=== PATIENT | female | born 1985 | race Caucasian/White ===

== ENCOUNTER 2016-04-21 02:38 | Emergency (ER) | payer MEDICAID, OTHER ==
[~2016-04-21 02:38] MED LIST: ACYC400T PO; ATOM40CA PO; BENT10CA PO; BISA10SU4 PR; BUSP10TA PO; CEFD1CAP8 PO; DIPHCR EXT; DOCU100C27 PO; GABA100C PO; GABA800T PO; HYDR-3713 PO; IBUP100SUS PO; NEUR600T PO; NICO10SP; OMEP20CA3 PO; OXCA600T PO; PENI250T57 PO; POTA10TA16 PO; PRAZ1CAP PO; PRAZ2CAP PO; PRENTAB66 PO; PROZ10CA7 PO; REGL10TA6 PO; RITA20TA PO; SERT-141 PO; TRAZ50TA4 PO; Trazadone PO; WELBUTRIN PO; WELL100T2 PO; ZOFR4TAB3 PO; [UNRECOGNIZED DRUG - CODE] PO; [UNRECOGNIZED DRUG - OTHER] PO
[2016-04-21] MEDS ORDERED: DICYCLOMINE INJ 20MG/2ML (J0500) As Ordered ONE (03:48)
[2016-04-21] MEDS ORDERED: ONDANSETRON 4 MG ORAL DISINTEGRATING TAB (S0181) As Ordered ONE (03:48)
[2016-04-21] MEDS ORDERED: MAGNESIUM CITRATE 300 ML BTL As Ordered ONE (05:12)
--- NOTE | 2016-04-21 05:21 | EDDOCDS ---
Nurse's Notes [facility] Name: Sera Gordon Age: 30 yrs Sex: Female : 1985 Arrival Date: 04/21/2016 Time: 02:38 Bed 15 Private MD: Diagnosis: Constipation Presentation: 04/21 02:40 Presenting complaint: EMS states: per EMS pt complains of abdominal pain, no BM for the tm5 past 2 days now, VSS. Risk factors: the patient reports no vaginal bleeding. Adult Sepsis Screening: The patient does not have new or worsening altered mentation. Patient's respiratory rate is less than 22. Systolic blood pressure is greater than 100. Patient has a qSOFA score of 0- Negative Sepsis Screen. Suicide/Homicide risk assessment- the patient denies having any suicidal and/or homicidal ideations and does not present with any other emotional, behavioral or mental health complaints. Status: Patient is not a employment service specialist or dependent. Transition of care: patient was not received from another setting of care. 02:40 Acuity: DAMIAN Level 4 tm5 02:40 Method Of Arrival: Ambulance tm5 Triage Assessment: 02:43 General: Appears uncomfortable, Behavior is appropriate for age, cooperative. Pain: tm5 Location: abdomen Pain currently is 10 out of 10 on a pain scale. Quality of pain is described as crampy. HIV screening NA for this visit Offered previously. The patient is triaged at the bedside. See Assessment in Nurses Notes section of ED record. Neurological: Level of Consciousness is awake, alert, Oriented to person, place, time. Respiratory: Airway is patent Respiratory effort is even, unlabored, Respiratory pattern is regular, symmetrical, Breath sounds are clear bilaterally. GI: Abdomen is non- distended Bowel sounds present X 4 quads. Abd is soft X 4 quads Abd is tender to palpation in right lower quadrant and left lower quadrant Reports constipation. : No deficits noted. Derm: Skin is pink, warm & dry. normal. 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 gabapentin 800 mg Oral tab 1 tab 3 times per day 2. prazosin 2 mg Oral cap 1 cap 2 times per day 3. trazodone 50 mg Oral tab 3 times per day as needed 4. Trileptal 600 mg oral tab 2 times per day 5. Wellbutrin 100 mg Oral tab 1 tab daily - PMHx: ADHD; Bipolar disorder; blind in right eye; Hepatitis C; Opioid abuse; Sleep Apnea w/o CPAP; - PSHx: none; - Social history: Smoking status: Patient uses tobacco products, current every day smoker. No barriers to communication noted, The patient speaks fluent Yakut. - Family history: Not pertinent. - : The pt / caregiver states he / she is not on anticoagulants. Home medication list is obtained from [employer] import data. - Exposure Risk Screening:: None identified. Screenin:48 Screening information is obtained from the patient. Fall risk: No risks identified. tm5 Assistance ADL's: requires no assistance with activities of daily living. Abuse/DV Screen: The patient / caregiver reports he/she is: not in a situation that causes fear, pain or injury. Nutritional screening: No deficits noted. Advance Directives: Currently, there is no health care proxy. There is no active DNR order. home support is adequate. Assessment: 02:48 General: see triage assessment . GI: Abdomen is non- distended Bowel sounds present X 4 tm5 quads. Abd is soft X 4 quads Abd is tender to palpation in right lower quadrant and left lower quadrant. 04:48 Reassessment: Patient appears in no apparent distress at this time. Patient states tm5 feeling better. Patient states symptoms have improved. 05:17 Reassessment: Patient appears in no apparent distress at this time. Patient states tm5 feeling better. Patient states symptoms have improved. Vital Signs: 02:43 BP 132 / 58; Pulse 78; Resp 20; Temp 97.8(O); Pulse Ox 100% on R/A; Weight 58.97 kg; tm5 Height 5 ft. 2 in. (157.48 cm); Pain 10/10; 05:17 BP 122 / 56; Pulse 74; Resp 16; Temp 97.8; Pulse Ox 99% ; Pain 2/10; tm5 02:43 Body Mass Index 23.78 (58.97 kg, 157.48 cm) [facility] Vitals: 02:43 Log In Time N/A - ambulance arrival. 5 ED Course: 02:38 Patient visited by Stephy Clayton, Elevator Mechanic Apprentice. [facility] 02:38 Patient moved to 15 jlm 02:40 Patient visited by Sneha Schuler RN. tm5 02:42 Triage Initiated tm5 02:48 Patient visited by Sneha Schuler RN. tm5 02:48 Awaiting ED physician evaluation. tm5 02:48 The patient / caregiver is instructed regarding the plan of care and ED course. tm5 03:28 Uli Lee DO is Attending Physician. mm11 03:28 Patient visited by Uli Lee DO. mm11 03:36 Patient visited by Uli Lee DO. mm11 03:44 Patient moved to radiology. tm5 04:47 Patient visited by Sneha Schuler RN. tm5 05:17 No IV's were initiated during this patient's visit. No procedures done that require tm5 assistance. 05:20 [facility] Payment Agreement was scanned into [employer] and attached to record. hs2 Administered Medications: 03:51 Drug: Ondansetron ODT 4 mg [ondansetron 4 mg disintegrating tablet (1 tabs)] Route: PO; tm5 04:30 Follow up: Response: Nausea is decreased; No Adverse Reaction tm5 03:52 Drug: Bentyl 20 mg [Bentyl 10 mg/mL intramuscular solution (2 mL)] Route: IM; Site: tm5 right gluteus; 04:30 Follow up: Response: No Adverse Reaction; Pain is decreased tm5 05:17 Drug: Magnesium Citrate 300 ml [magnesium citrate oral solution (300 mL)] Route: PO; tm5 05:17 Follow up: Response: Med's dispensed home tm5 Order Results: There are currently no results for this order. Outcome: 05:10 Discharge ordered by Provider. mm11 05:17 Discharge Assessment: Patient awake, alert and oriented x 3. No cognitive and/or tm5 functional deficits noted. Patient verbalized understanding of disposition instructions. patient administered narcotics - no. The following High Risk Discharge criteria are identified: None. Discharged to home ambulatory, with significant other. Condition: good Condition: stable Condition: improved. Discharge instructions given to patient, Instructed on discharge instructions, follow up and referral plans. medication usage, Demonstrated understanding of instructions, medications, Pt was receptive of discharge instructions/ teaching. Prescriptions given X 3. No special radiology studies were completed. Property :Personal belongings accompany Pt. 05:20 Patient left the ED. tm5 Signatures: Uli Lee, DO mm11 Stephy Clayton, Elevator Mechanic Apprentice Unit arceliam Felicita Zamora, Reg Reg hs2 Sneha Schuler,RN RN tm5 MTDD
--- NOTE | 2016-04-21 05:21 | EDDOCDS ---
Physician Documentation [facility] Name: Sera Gordon Age: 30 yrs Sex: Female : 1985 Arrival Date: 04/21/2016 Time: 02:38 Bed 15 Private MD: Disposition: 04/21/16 05:10 Discharged to Home/Self Care. Impression: Constipation. - Condition is Stable. - Discharge Instructions: Constipation, Adult, Constipation, Adult, [id number]. - Prescriptions for Bentyl 20 mg Oral Tablet - take 1 tablet by ORAL route every 6 hours As needed; 20 tablet. ZOFRAN ODT 4 mg - dissolve 1 tablet by ORAL route 4 times per day As needed do not chew, do not swallow whole; 10 tablet. Miralax 17 gram/dose - take 17 gram by ORAL route once daily As needed dilute in 8 ounces of water or juice; 1 bottle. - Medication Reconciliation, Local Pharmacy Hours form. - Follow up: Private Physician; When: Call to arrange an appointment; Reason: Continuance of care. - Problem is an acute exacerbation. - Symptoms have improved. Historical: - Allergies: none; - Home Meds: 1. gabapentin 800 mg Oral tab 1 tab 3 times per day 2. prazosin 2 mg Oral cap 1 cap 2 times per day 3. trazodone 50 mg Oral tab 3 times per day as needed 4. Trileptal 600 mg oral tab 2 times per day 5. Wellbutrin 100 mg Oral tab 1 tab daily - PMHx: ADHD; Bipolar disorder; blind in right eye; Hepatitis C; Opioid abuse; Sleep Apnea w/o CPAP; - PSHx: none; - Social history: Smoking status: Patient uses tobacco products, current every day smoker. No barriers to communication noted, The patient speaks fluent Japanese. - Family history: Not pertinent. - : The pt / caregiver states he / she is not on anticoagulants. Home medication list is obtained from [employer] import data. - Exposure Risk Screening:: None identified. 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 2 in. (157.48 cm); Pain 10/10; 05:17 BP 122 / 56; Pulse 74; Resp 16; Temp 97.8; Pulse Ox 99% ; Pain 2/10; tm5 02:43 Body Mass Index 23.78 (58.97 kg, 157.48 cm) tm5 MDM: 03:37 Bentyl 20 mg IM once ordered. mm11 03:37 Ondansetron ODT Oral Disintegrating Tablet 4 mg PO once ordered. mm11 03:37 Abdomen, Flat\E\Upright,PA Chest Ordered. EDMS 05:03 Magnesium Citrate Liquid 300 ml PO once; Dispense home with pt. ordered. mm11 05:19 Financial registration complete. hs2 05:20 [facility] Payment Agreement was scanned into [employer] and attached to record. hs2 Administered Medications: 03:51 Drug: Ondansetron ODT 4 mg [ondansetron 4 mg disintegrating tablet (1 tabs)] Route: PO; tm5 04:30 Follow up: Response: Nausea is decreased; No Adverse Reaction tm5 03:52 Drug: Bentyl 20 mg [Bentyl 10 mg/mL intramuscular solution (2 mL)] Route: IM; Site: tm5 right gluteus; 04:30 Follow up: Response: No Adverse Reaction; Pain is decreased tm5 05:17 Drug: Magnesium Citrate 300 ml [magnesium citrate oral solution (300 mL)] Route: PO; tm5 05:17 Follow up: Response: Med's dispensed home tm5 Signatures: Dispatcher [employer] EDMS Uli Lee DO DO mm11 Felicita Zamora, Reg Reg hs2 Sneha Schuler RN RN tm5 The chart was reviewed and I authenticate all verbal orders and agree with the evaluation and treatment provided.Attachments: 05:20 [facility] Payment Agreement hs2 MTDD
--- NOTE | 2016-04-22 11:09 | REP ---
Acute abdominal series three views including PA chest and supine upright abdomen: PA chest: Comparison is 03/02/2012. The lung sumner are clear. Cardiac size is normal. The asmita, mediastinum, and bony thorax unremarkable. There is no free subdiaphragmatic air. There is no interval change. Impression: Negative PA chest. Abdomen, supine upright views: Comparison is 08/22/2014. The bowel gas pattern is normal. No calcifications except for stable phleboliths in the pelvis on the left. The skeletal structures and soft tissues are otherwise unremarkable. Impression: Normal bowel gas pattern. Signed by Meng Zafar MD 04/21/2016 08:56 A
--- NOTE | 2016-04-23 06:21 | EDDOCDS ---
Physician Documentation [facility] Name: Sera Gordon Age: 30 yrs Sex: Female : 1985 Arrival Date: 04/21/2016 Time: 02:38 Bed 15 Private MD: Disposition: 04/21/16 05:10 Discharged to Home/Self Care. Impression: Constipation. - Condition is Stable. - Discharge Instructions: Constipation, Adult, Constipation, Adult, [id number]. - Prescriptions for Bentyl 20 mg Oral Tablet - take 1 tablet by ORAL route every 6 hours As needed; 20 tablet. ZOFRAN ODT 4 mg - dissolve 1 tablet by ORAL route 4 times per day As needed do not chew, do not swallow whole; 10 tablet. Miralax 17 gram/dose - take 17 gram by ORAL route once daily As needed dilute in 8 ounces of water or juice; 1 bottle. - Medication Reconciliation, Local Pharmacy Hours form. - Follow up: Private Physician; When: Call to arrange an appointment; Reason: Continuance of care. - Problem is an acute exacerbation. - Symptoms have improved. Historical: - Allergies: none; - Home Meds: 1. gabapentin 800 mg Oral tab 1 tab 3 times per day 2. prazosin 2 mg Oral cap 1 cap 2 times per day 3. trazodone 50 mg Oral tab 3 times per day as needed 4. Trileptal 600 mg oral tab 2 times per day 5. Wellbutrin 100 mg Oral tab 1 tab daily - PMHx: ADHD; Bipolar disorder; blind in right eye; Hepatitis C; Opioid abuse; Sleep Apnea w/o CPAP; - PSHx: none; - Social history: Smoking status: Patient uses tobacco products, current every day smoker. No barriers to communication noted, The patient speaks fluent Yakut. - Family history: Not pertinent. - : The pt / caregiver states he / she is not on anticoagulants. Home medication list is obtained from [employer] import data. - Exposure Risk Screening:: None identified. 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 2 in. (157.48 cm); Pain 10/10; 05:17 BP 122 / 56; Pulse 74; Resp 16; Temp 97.8; Pulse Ox 99% ; Pain 2/10; tm5 02:43 Body Mass Index 23.78 (58.97 kg, 157.48 cm) tm5 MDM: 03:37 Bentyl 20 mg IM once ordered. mm11 03:37 Ondansetron ODT Oral Disintegrating Tablet 4 mg PO once ordered. mm11 03:37 Abdomen, Flat\E\Upright,PA Chest Ordered. EDMS 05:03 Magnesium Citrate Liquid 300 ml PO once; Dispense home with pt. ordered. mm11 05:19 Financial registration complete. hs2 05:20 [facility] Payment Agreement was scanned into [employer] and attached to record. hs2 18:43 T-Sheet-- Draft Copy was scanned into [employer] and attached to record. klr Administered Medications: 03:51 Drug: Ondansetron ODT 4 mg [ondansetron 4 mg disintegrating tablet (1 tabs)] Route: PO; tm5 04:30 Follow up: Response: Nausea is decreased; No Adverse Reaction tm5 03:52 Drug: Bentyl 20 mg [Bentyl 10 mg/mL intramuscular solution (2 mL)] Route: IM; Site: tm5 right gluteus; 04:30 Follow up: Response: No Adverse Reaction; Pain is decreased tm5 05:17 Drug: Magnesium Citrate 300 ml [magnesium citrate oral solution (300 mL)] Route: PO; tm5 05:17 Follow up: Response: Med's dispensed home tm5 Signatures: Dispatcher [employer] EDMS Uli Lee DO DO mm11 Felicita Zamora, Reg Reg hs2 Kymberly Smith klr Sneha Schuler RN RN tm5 The chart was reviewed and I authenticate all verbal orders and agree with the evaluation and treatment provided.Attachments: 05:20 [facility] Payment Agreement hs2 18:43 T-Sheet-- Draft Copy klr Chart Complete MTDD
--- NOTE | 2016-04-23 06:21 | EDDOCDS ---
Nurse's Notes [facility] Name: Sera Gordon Age: 30 yrs Sex: Female : 1985 Arrival Date: 04/21/2016 Time: 02:38 Bed 15 Private MD: Diagnosis: Constipation Presentation: 04/21 02:40 Presenting complaint: EMS states: per EMS pt complains of abdominal pain, no BM for the tm5 past 2 days now, VSS. Risk factors: the patient reports no vaginal bleeding. Adult Sepsis Screening: The patient does not have new or worsening altered mentation. Patient's respiratory rate is less than 22. Systolic blood pressure is greater than 100. Patient has a qSOFA score of 0- Negative Sepsis Screen. Suicide/Homicide risk assessment- the patient denies having any suicidal and/or homicidal ideations and does not present with any other emotional, behavioral or mental health complaints. Status: Patient is not a financial service rep or dependent. Transition of care: patient was not received from another setting of care. 02:40 Acuity: DAMIAN Level 4 tm5 02:40 Method Of Arrival: Ambulance tm5 Triage Assessment: 02:43 General: Appears uncomfortable, Behavior is appropriate for age, cooperative. Pain: tm5 Location: abdomen Pain currently is 10 out of 10 on a pain scale. Quality of pain is described as crampy. HIV screening NA for this visit Offered previously. The patient is triaged at the bedside. See Assessment in Nurses Notes section of ED record. Neurological: Level of Consciousness is awake, alert, Oriented to person, place, time. Respiratory: Airway is patent Respiratory effort is even, unlabored, Respiratory pattern is regular, symmetrical, Breath sounds are clear bilaterally. GI: Abdomen is non- distended Bowel sounds present X 4 quads. Abd is soft X 4 quads Abd is tender to palpation in right lower quadrant and left lower quadrant Reports constipation. : No deficits noted. Derm: Skin is pink, warm & dry. normal. 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 gabapentin 800 mg Oral tab 1 tab 3 times per day 2. prazosin 2 mg Oral cap 1 cap 2 times per day 3. trazodone 50 mg Oral tab 3 times per day as needed 4. Trileptal 600 mg oral tab 2 times per day 5. Wellbutrin 100 mg Oral tab 1 tab daily - PMHx: ADHD; Bipolar disorder; blind in right eye; Hepatitis C; Opioid abuse; Sleep Apnea w/o CPAP; - PSHx: none; - Social history: Smoking status: Patient uses tobacco products, current every day smoker. No barriers to communication noted, The patient speaks fluent Macedonian. - Family history: Not pertinent. - : The pt / caregiver states he / she is not on anticoagulants. Home medication list is obtained from [employer] import data. - Exposure Risk Screening:: None identified. Screenin:48 Screening information is obtained from the patient. Fall risk: No risks identified. tm5 Assistance ADL's: requires no assistance with activities of daily living. Abuse/DV Screen: The patient / caregiver reports he/she is: not in a situation that causes fear, pain or injury. Nutritional screening: No deficits noted. Advance Directives: Currently, there is no health care proxy. There is no active DNR order. home support is adequate. Assessment: 02:48 General: see triage assessment . GI: Abdomen is non- distended Bowel sounds present X 4 tm5 quads. Abd is soft X 4 quads Abd is tender to palpation in right lower quadrant and left lower quadrant. 04:48 Reassessment: Patient appears in no apparent distress at this time. Patient states tm5 feeling better. Patient states symptoms have improved. 05:17 Reassessment: Patient appears in no apparent distress at this time. Patient states tm5 feeling better. Patient states symptoms have improved. Vital Signs: 02:43 BP 132 / 58; Pulse 78; Resp 20; Temp 97.8(O); Pulse Ox 100% on R/A; Weight 58.97 kg; tm5 Height 5 ft. 2 in. (157.48 cm); Pain 10/10; 05:17 BP 122 / 56; Pulse 74; Resp 16; Temp 97.8; Pulse Ox 99% ; Pain 2/10; tm5 02:43 Body Mass Index 23.78 (58.97 kg, 157.48 cm) [facility] Vitals: 02:43 Log In Time N/A - ambulance arrival. 5 ED Course: 02:38 Patient visited by Stephy Clayton, Creel Hand. [facility] 02:38 Patient moved to 15 jlm 02:40 Patient visited by Sneha Schuler RN. tm5 02:42 Triage Initiated tm5 02:48 Patient visited by Sneha Schuler RN. tm5 02:48 Awaiting ED physician evaluation. tm5 02:48 The patient / caregiver is instructed regarding the plan of care and ED course. tm5 03:28 Uli Lee DO is Attending Physician. mm11 03:28 Patient visited by Uli Lee DO. mm11 03:36 Patient visited by Uli Lee DO. mm11 03:44 Patient moved to radiology. tm5 04:47 Patient visited by Sneha Schuler RN. tm5 05:17 No IV's were initiated during this patient's visit. No procedures done that require tm5 assistance. 05:20 [facility] Payment Agreement was scanned into [employer] and attached to record. 2 18:43 T-Sheet-- Draft Copy was scanned into [employer] and attached to record. klr 04/22 11:19 Abdomen, Flat\E\Upright,PA Chest Returned. EDMS Administered Medications: 04/21 03:51 Drug: Ondansetron ODT 4 mg [ondansetron 4 mg disintegrating tablet (1 tabs)] Route: PO; tm5 04:30 Follow up: Response: Nausea is decreased; No Adverse Reaction tm5 03:52 Drug: Bentyl 20 mg [Bentyl 10 mg/mL intramuscular solution (2 mL)] Route: IM; Site: tm5 right gluteus; 04:30 Follow up: Response: No Adverse Reaction; Pain is decreased tm5 05:17 Drug: Magnesium Citrate 300 ml [magnesium citrate oral solution (300 mL)] Route: PO; tm5 05:17 Follow up: Response: Med's dispensed home tm5 Order Results: Radiology Order: Abdomen, Flat\E\Upright,PA Chest Test: Abdomen, Flat\E\Upright,PA Chest REASON FOR EXAMINATION: constipation, r/o obstruction; Acute abdominal series three views including PA chest and supine upright; abdomen:; ; PA chest:; ; Comparison is 03/02/2012.; ; The lung sumner are clear. Cardiac size is normal. The asmita, mediastinum, and; bony thorax unremarkable. There is no free subdiaphragmatic air. There is no; interval change.; ; Impression:; ; Negative PA chest.; ; Abdomen, supine upright views:; ; Comparison is 08/22/2014.; ; The bowel gas pattern is normal. No calcifications except for stable phleboliths; in the pelvis on the left. The skeletal structures and soft tissues are; otherwise unremarkable.; ; Impression:; ; Normal bowel gas pattern.; ; ; Signed by; Meng Zafar MD 04/21/2016 08:56 A; Outcome: 05:10 Discharge ordered by Provider. mm11 05:17 Discharge Assessment: Patient awake, alert and oriented x 3. No cognitive and/or tm5 functional deficits noted. Patient verbalized understanding of disposition instructions. patient administered narcotics - no. The following High Risk Discharge criteria are identified: None. Discharged to home ambulatory, with significant other. Condition: good Condition: stable Condition: improved. Discharge instructions given to patient, Instructed on discharge instructions, follow up and referral plans. medication usage, Demonstrated understanding of instructions, medications, Pt was receptive of discharge instructions/ teaching. Prescriptions given X 3. No special radiology studies were completed. Property :Personal belongings accompany Pt. 05:20 Patient left the ED. tm5 Signatures: Dispatcher [employer] EDMS Uli Lee, DO DO mm11 Stephy Clayton, Creel Hand Unit Felicita Cohen, Reg Reg sophy2 Kymberly Smith Tonya,RN RN tm5 Chart Complete MTDD
--- NOTE | 2016-04-23 06:21 | EDDOCDS ---
Physician Documentation [facility] Name: Sera Gordon Age: 30 yrs Sex: Female : 1985 Arrival Date: 04/21/2016 Time: 02:38 Bed 15 Private MD: Disposition: 04/21/16 05:10 Discharged to Home/Self Care. Impression: Constipation. - Condition is Stable. - Discharge Instructions: Constipation, Adult, Constipation, Adult, [id number]. - Prescriptions for Bentyl 20 mg Oral Tablet - take 1 tablet by ORAL route every 6 hours As needed; 20 tablet. ZOFRAN ODT 4 mg - dissolve 1 tablet by ORAL route 4 times per day As needed do not chew, do not swallow whole; 10 tablet. Miralax 17 gram/dose - take 17 gram by ORAL route once daily As needed dilute in 8 ounces of water or juice; 1 bottle. - Medication Reconciliation, Local Pharmacy Hours form. - Follow up: Private Physician; When: Call to arrange an appointment; Reason: Continuance of care. - Problem is an acute exacerbation. - Symptoms have improved. Historical: - Allergies: none; - Home Meds: 1. gabapentin 800 mg Oral tab 1 tab 3 times per day 2. prazosin 2 mg Oral cap 1 cap 2 times per day 3. trazodone 50 mg Oral tab 3 times per day as needed 4. Trileptal 600 mg oral tab 2 times per day 5. Wellbutrin 100 mg Oral tab 1 tab daily - PMHx: ADHD; Bipolar disorder; blind in right eye; Hepatitis C; Opioid abuse; Sleep Apnea w/o CPAP; - PSHx: none; - Social history: Smoking status: Patient uses tobacco products, current every day smoker. No barriers to communication noted, The patient speaks fluent Faroese. - Family history: Not pertinent. - : The pt / caregiver states he / she is not on anticoagulants. Home medication list is obtained from [employer] import data. - Exposure Risk Screening:: None identified. 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 2 in. (157.48 cm); Pain 10/10; 05:17 BP 122 / 56; Pulse 74; Resp 16; Temp 97.8; Pulse Ox 99% ; Pain 2/10; tm5 02:43 Body Mass Index 23.78 (58.97 kg, 157.48 cm) tm5 MDM: 03:37 Bentyl 20 mg IM once ordered. mm11 03:37 Ondansetron ODT Oral Disintegrating Tablet 4 mg PO once ordered. mm11 03:37 Abdomen, Flat\E\Upright,PA Chest Ordered. EDMS 05:03 Magnesium Citrate Liquid 300 ml PO once; Dispense home with pt. ordered. mm11 05:19 Financial registration complete. hs2 05:20 [facility] Payment Agreement was scanned into [employer] and attached to record. hs2 18:43 T-Sheet-- Draft Copy was scanned into [employer] and attached to record. klr Administered Medications: 03:51 Drug: Ondansetron ODT 4 mg [ondansetron 4 mg disintegrating tablet (1 tabs)] Route: PO; tm5 04:30 Follow up: Response: Nausea is decreased; No Adverse Reaction tm5 03:52 Drug: Bentyl 20 mg [Bentyl 10 mg/mL intramuscular solution (2 mL)] Route: IM; Site: tm5 right gluteus; 04:30 Follow up: Response: No Adverse Reaction; Pain is decreased tm5 05:17 Drug: Magnesium Citrate 300 ml [magnesium citrate oral solution (300 mL)] Route: PO; tm5 05:17 Follow up: Response: Med's dispensed home tm5 Signatures: Dispatcher [employer] EDMS Uli Lee DO DO mm11 Felicita Zamora, Reg Reg hs2 Kymberly Smith klr Sneha Schuler RN RN tm5 The chart was reviewed and I authenticate all verbal orders and agree with the evaluation and treatment provided.Attachments: 05:20 [facility] Payment Agreement hs2 18:43 T-Sheet-- Draft Copy klr Chart Complete MTDD
== END 2016-04-21 05:20 | disposition home or self-care (01) ==
LOC: M ED 02:38
DX: K59.00 Constipation, unspecified (principal); F11.10 Opioid abuse, uncomplicated; F31.9 Bipolar disorder, unspecified; F90.9 Attention-deficit hyperactivity disorder, unspecified type; G47.30 Sleep apnea, unspecified; B19.20 Unspecified viral hepatitis C without hepatic coma; Z79.899 Other long term (current) drug therapy; F17.210 Nicotine dependence, cigarettes, uncomplicated
CPT/HCPCS: 74022; 96372; 99284; J0500

== ENCOUNTER 2016-06-13 11:30 | Outpatient (RCR) | payer OTHER ==
[~2016-06-13 11:30] MED LIST changes: -SERT-141 PO; +SERT50TA PO
== END 2016-06-21 ==
LOC: M PT 11:30
PROVIDERS: ATTEND Neuromusculoskeletal Medicine & OMM
DX: Z51.89 Encounter for other specified aftercare (principal); M54.9 Dorsalgia, unspecified

== ENCOUNTER 2016-07-19 11:00 | Outpatient (RCR) | payer OTHER ==
[2016-07-21] MEDS ORDERED: RITA10TA PO (10:57)
[2016-07-21] MEDS ORDERED: IBUP600T26 PO (12:05)
== END 2016-07-21 | disposition home or self-care (01) ==
LOC: M PT 11:00
PROVIDERS: ATTEND Neuromusculoskeletal Medicine & OMM
DX: Z51.89 Encounter for other specified aftercare (principal); M54.9 Dorsalgia, unspecified

== ENCOUNTER 2016-07-21 10:22 | Emergency (ER) | payer OTHER ==
[~2016-07-21] VITALS: Ht 157.5 cm; Wt 58.1 kg
[2016-07-21] MEDS ORDERED: RITA10TA PO (10:57)
[2016-07-21] MEDS ORDERED: ACETAMINOPHEN TAB 650MG DOSE (2X325MG) PO ONE (11:45)
[2016-07-21] MEDS ORDERED: IBUPROFEN 600 MG TAB PO ONE (11:45)
[2016-07-21] MEDS ORDERED: IBUP600T26 PO (12:05)
[2016-07-21 12:22] VITALS: BP 118/78
--- NOTE | 2016-07-22 05:49 | REP ---
RIGHT FOOT, FOUR VIEWS: HISTORY: Pain. There is no acute fracture or dislocation. The joint spaces are normal in appearance. IMPRESSION: There is no acute fracture or dislocation. Signed by Ronni Lee MD 07/22/2016 08:15 A
== END 2016-07-21 12:25 | disposition home or self-care (01) ==
LOC: M ED 11:28
DX: S90.31XA Contusion of right foot, initial encounter (principal); W19.XXXA Unspecified fall, initial encounter; Y92.89 Other specified places as the place of occurrence of the external cause; Y93.89 Activity, other specified; Y99.8 Other external cause status; F32.9 Major depressive disorder, single episode, unspecified; F41.9 Anxiety disorder, unspecified; B19.20 Unspecified viral hepatitis C without hepatic coma; Z79.899 Other long term (current) drug therapy

== ENCOUNTER 2016-07-30 09:55 | Emergency (ER) | payer OTHER ==
[~2016-07-30] VITALS: Ht 157.5 cm; Wt 54.4 kg
[~2016-07-30 09:55] MED LIST changes: +IBUP600T26 PO; +RITA10TA PO
[2016-07-30] MEDS ORDERED: BUPR75TA5 PO (10:17)
[2016-07-30] MEDS ORDERED: MULTTAB24 PO (10:17)
[2016-07-30] MEDS ORDERED: NICO21DI5 TD (10:17)
[2016-07-30] MEDS ORDERED: TRAZ100T4 PO (10:17)
[2016-07-30] MEDS ORDERED: OXCA600T PO (10:17)
[2016-07-30] MEDS ORDERED: NEXP1IMP SC (10:20)
[2016-07-30] MEDS ORDERED: ATIV1TAB7 PO (11:46)
[2016-07-30 12:08] VITALS: BP 133/80
== END 2016-07-30 12:10 | disposition home or self-care (01) ==
LOC: M ED 10:39
DX: F41.9 Anxiety disorder, unspecified (principal); G89.29 Other chronic pain; Z79.899 Other long term (current) drug therapy

== ENCOUNTER 2016-08-16 08:15 | Outpatient (RCR) | payer OTHER ==
[~2016-08-16 08:15] MED LIST changes: +ATIV1TAB7 PO; +BUPR75TA5 PO; +MULTTAB24 PO; +NEXP1IMP SC; +NICO21DI5 TD; +TRAZ100T4 PO
== END 2016-08-21 | disposition home or self-care (01) ==
LOC: M PT 08:15
PROVIDERS: ATTEND Neuromusculoskeletal Medicine & OMM
DX: Z51.89 Encounter for other specified aftercare (principal); M54.9 Dorsalgia, unspecified

== ENCOUNTER 2016-10-21 13:57 | Observation (INO) | payer OTHER ==
[~2016-10-21] VITALS: Ht 157.5 cm; Wt 57.7 kg
[~2016-10-21 13:57] MED LIST changes: +IBUP-1022 PO; +IBUP100S37 PO; -IBUP100SUS PO; -IBUP600T26 PO; +TRAZ-136 PO; -TRAZ100T4 PO; +TRAZ50TA11 PO; -TRAZ50TA4 PO
[2016-10-21] MEDS ORDERED: TRAZ1TAB14 PO (14:14)
[2016-10-21] MEDS ORDERED: NS 1,000 ML IV ONE ×2 (14:30→17:30)
[2016-10-21] MEDS: MORPHINE 2 MG/ML 1ML SYRINGE IV PRN ×2 (14:33→18:50)
[2016-10-21 14:55] LABS: BASO % 0.5 % (0.0-1.0); EOS # 0.1 K/mm3 (0.0-0.50); EOS % 0.5 % (0.0-3.0); LARGE UNSTAINED CELL # 0.2 K/mm3 (0.0-0.4); LYMPH # 2.6 K/mm3 (1.5-4.5); LYMPH % 21.8 % (24.0-44.0); MEAN CORPUSCULAR HEMOGLOBIN 31.7 pg (27.0-33.0); MEAN CORPUSCULAR VOLUME 90.8 fl (80.0-96.0); MONO # 0.5 K/mm3 (0.0-0.8); MONO % 4.7 % (0.0-5.0); NEUTROPHILS # 7.7 K/mm3 (1.8-7.7); NEUTROPHILS % 70.6 % (36.0-66.0); PLATELET COUNT, AUTOMATED 274 k/mm3 (150-450); RED CELL DISTRIBUTION WIDTH 12.5 % (11.5-14.5); WHITE BLOOD COUNT 10.8 K/mm3 (4.0-10.0)
[2016-10-21 15:56] LABS: CONTROL LINE HCG INT CTR LINE PRESENT
[2016-10-21 16:04] LABS: ALBUMIN 3.5 GM/DL (3.2-5.2); ALBUMIN/GLOBULIN RATIO 1.13 (1.00-1.93); ALKALINE PHOSPHATASE 82 U/L (45-117); ALT/SGPT 153 U/L (12-78); AMYLASE 52 U/L (25-115); ANION GAP 11 MEQ/L (8-16); AST/SGOT 66 U/L (15-37); BILIRUBIN,DIRECT 0.2 MG/DL (0.0-0.2); BILIRUBIN,TOTAL 0.5 MG/DL (0.2-1.0); BLOOD UREA NITROGEN 16 MG/DL (7-18); CALCIUM LEVEL 8.1 MG/DL (8.5-10.1); CARBON DIOXIDE LEVEL 24 MEQ/L (21-32); CHLORIDE LEVEL 104 MEQ/L (98-107); CREATININE FOR GFR 0.54 MG/DL (0.55-1.02); GLOMERULAR FILTRATION RATE > 60.0 (>60); GLUCOSE, FASTING 84 MG/DL (70-105); POTASSIUM SERUM 4.3 MEQ/L (3.5-5.1); SODIUM LEVEL 139 MEQ/L (136-145); TOTAL PROTEIN 6.6 GM/DL (6.4-8.2)
[2016-10-21] MEDS ORDERED: ISOVUE-370 76% 100ML VIAL (Q9967) As Ordered ONE (16:35)
--- NOTE | 2016-10-21 16:47 | REP ---
KUB, ONE VIEW: HISTORY: Constipation. Air is present in small and large intestine. There are no air fluid levels or dilated loops of intestine. There is no pneumoperitoneum. A small amount of stool is present in the colon. IMPRESSION: Nonspecific bowel gas pattern. Signed by Ronni Lee MD 10/21/2016 05:12 P
--- NOTE | 2016-10-21 17:45 | REP ---
CT abdomen and pelvis with IV contrast: 10/21/2016. Clinical history: Periumbilical abdominal pain. Technique. A bolus of 100 mL of Isovue 370 given with scanning through the abdomen and pelvis without oral contrast. I would note the patient has a very low body fat content limiting intrinsic contrast on the CT and therefore the sensitivity of the examination. Findings:CT abdomen: Lung bases show no effusion or infiltrate. There is curvilinear atelectatic change in the medial segment of right middle lobe. Heart not enlarged. There is no pericardial thickening or effusion. The right lobe of the liver is borderline size with an 18 cm diameter in the midclavicular line. No focal hepatic mass. Spleen is not enlarged. There is no biliary dilatation or ascites. Gallbladder shows no calcified stone or mass. Pancreas unremarkable. Adrenal glands normal. Kidneys show function without obstruction, stone, mass or cyst. No perinephric fluid. No hiatal hernia. Small amount of fluid is in the stomach. The small bowel loops are mostly fluid-filled loops of bowel without dilatation or significant air-fluid levels. Colon shows scattered stool and gas with fluid, but no dilatation. This is seen to the rectosigmoid. Lung window review of CT abdomen and pelvis images show no perforation or free air. No abscess. No aortic aneurysm or dissection. No periaortic or other retroperitoneal pathologic sized lymphadenopathy. CT pelvis: The vessels in the pelvis were grossly intact with no ventral or inguinal hernia or pathologic inguinal adenopathy. No pelvic free fluid. Small bowel loops fluid-filled. Distal left colon to the sigmoid and rectum are fluid and stool-filled. I do not see any inflammatory changes about the cecum. Appendix cannot be identified. There is no evidence of fluid collection or air bubbles to suggest abscess. Bones show no acute finding. Impression: 1. Fluid-filled small bowel loops without abnormal dilatation and only a few air-fluid levels as a nonspecific finding. Stool and fluid with some gas in the colon as well suggesting gastroenteritis or mild ileus. No definite obstruction, mass or free air. No ascites, perforation or abscess. Appendix is not seen. 2. Solid organs upper abdomen unremarkable. Signed by Rony Ross MD 10/21/2016 09:25 P
[2016-10-21] MEDS ORDERED: ONDANSETRON 4MG/2ML VIAL (J2405) As Ordered ONE (17:49)
[2016-10-21] MEDS ORDERED: ONDANSETRON 4MG/2ML VIAL (J2405) IV ONE (18:00)
[2016-10-21] MEDS ORDERED: NS 1,000 ML IV SCH (18:30)
[2016-10-21] MEDS ORDERED: ACETAMINOPHEN TAB 650MG DOSE (2X325MG) PO PRN (18:30)
--- NOTE | 2016-10-21 19:10 | HPEPDOC ---
Medical History and Physical Date of Admission Oct 21, 2016 at 18:30 History and Physical PRIMARY CARE PROVIDER: Patient does not remember the name of her primary care physician ATTENDING: Dr. Chemo Ackerman CHIEF COMPLAINT: N/V/Abd pain HISTORY OF PRESENT ILLNESS: This is a 30-year-old female past medical history of right eye blindness, nephrolithiasis, suicidal ideations, anxiety/depression/bipolar/PTSD who presents complaining of nausea/vomiting/constipation. Patient states over the past week she's been constipated and has been having bilious, nonbloody vomiting. Has been unable to keep anything down. No fevers or chills. The patient states she presented to the ED as she has been unable to eat. In the ED, patient was given about regimen and had 2 bowel movements. Her nausea and vomiting has subsided. The patient however states she feels lightheaded on ambulation. No chest pain/shortness of breath/palpitations. PAST MEDICAL HISTORY: As per HPI PAST SURGICAL HISTORY: None SOCIAL HISTORY: 1/2 ppd x 13 years. Denies tobacco. Smokes marijuana, had been smoking a lot more marijuana recently since she felt sick. FAMILY HISTORY: Noncontributory ALLERGIES: Please see below. REVIEW OF SYSTEMS: HEENT: Denies sore throat/headache CARDIOVASCULAR: Denies chest pain/palpitations RESPIRATORY: Denies shortness of breath/cough GASTROINTESTINAL: denies nausea/vomiting GENITOURINARY: Denies dysuria/urinary urgency. MUSCULOSKELETAL: Denies myalgias/arthralgias NEUROLOGICAL: Denies any focal weakness HOME MEDICATIONS: Please see below. PHYSICAL EXAMINATION: Vitals: (see below) General: No acute distress, laying comfortably in bed. HEENT: Moist mucous membranes. Neck: No JVD or lymphadenopathy Cardiac: RRR, No murmurs Pulm: Clear to auscultation b/l. No wheezing, rhonchi Abd: Mild tenderness to palpation throughout. No rebound guarding or rigidity./ ND + BS Ext: No edema or cyanosis LABORATORY DATA: See below. IMAGING: CT abdomen and pelvis on 10/21/16 Impression: 1. Fluid-filled small bowel loops without abnormal dilatation and only a few air-fluid levels as a nonspecific finding. Stool and fluid with some gas in the colon as well suggesting gastroenteritis or mild ileus. No definite obstruction , mass or free air. No ascites, perforation or abscess. Appendix is not seen. 2. Solid organs upper abdomen unremarkable. MICROBIOLOGY: Please see below. ASSESSMENT/PLAN: 1. Intractable nausea/vomiting. Patient has been constipated over the past week. No fevers or chills. Had a bowel movement in the emergency department and feels significantly better. She does however have abdominal discomfort from all the vomiting. States she does not feel like eating at this time. His lightheaded on ambulation does not want to walk at this time. We will continue with IV hydration, full liquid diet, and physical therapy. 2. History of depression/anxiety/PTSD/bipolar- has not had her medications and 5 days that she did not pick them up. 3. History of right eye blindness 4. History of nephrolithiasis 5. Transaminitis- we will obtain hepatitis panel. Ultrasound. We'll trend markers. DVT prophylaxis- enoxaparin Patient followed by Dr. Chemo Ackerman starting 10/22/16 at 7 AM. Vital Signs Vital Signs Date Time Temp Pulse Resp B/P (MAP) Pulse Ox O2 Delivery O2 Flow Rate FiO2 10/21/16 18:50 18 10/21/16 14:33 97 Room Air 10/21/16 14:04 99.3 64 115/68 (84) Laboratory Data Labs 24H Laboratory Tests 2 10/21/16 14:46: White Blood Count 10.8H, Red Blood Count 4.72, Hemoglobin 15.0, Hematocrit 42.9 , Mean Corpuscular Volume 90.8, Mean Corpuscular Hemoglobin 31.7, Mean Corpuscular Hemoglobin Concent 35.0, Red Cell Distribution Width 12.5, Platelet Count 274, Neutrophils (%) (Auto) 70.6H, Lymphocytes (%) (Auto) 21.8L, Monocytes (%) (Auto) 4.7, Eosinophils (%) (Auto) 0.5, Basophils (%) (Auto) 0.5, Neutrophils # (Auto) 7.7, Lymphocytes # (Auto) 2.6, Monocytes # (Auto) 0.5, Eosinophils # (Auto) 0.1, Basophils # (Auto) 0.0, Large Unclassified Cells % 2.0 , Large Unclassified Cells # 0.2, Lactic Acid Level 0.8 10/21/16 15:20: Anion Gap 11, Glomerular Filtration Rate > 60.0, Calcium Level 8.1L, Aspartate Amino Transf (AST/SGOT) 66H, Alanine Aminotransferase (ALT/SGPT) 153H, Alkaline Phosphatase 82, Total Bilirubin 0.5, Direct Bilirubin 0.2, Total Protein 6.6, Albumin 3.5, Albumin/Globulin Ratio 1.13, Amylase Level 52, Lipase 108, Human Chorionic Gonadotropin, Qual NEGATIVE 10/21/16 17:34: Urine Appearance CLEAR, Urine Color YELLOW, Urine pH 7.0, Urine Specific Sterling >1.060H, Urine Protein NEGATIVE, Urine Glucose (UA) NEGATIVE, Urine Ketones 1+H, Urine Urobilinogen 0.2, Urine Bilirubin NEGATIVE, Urine Leukocyte Esterase NEGATIVE, Urine Blood NEGATIVE, Urine Nitrite NEGATIVE, Urine WBC (Auto ) 0, Urine RBC (Auto) 2, Urine Hyaline Casts (Auto) 0, Urine Bacteria (Auto) 1+H , Urine Squamous Epithelial Cells 6, Urine Sperm (Auto) 10/21/16 18:54: CBC/BMP Laboratory Tests 10/21/16 14:46 Red Blood Count 4.72, Mean Corpuscular Volume 90.8, Mean Corpuscular Hemoglobin 31.7, Mean Corpuscular Hemoglobin Concent 35.0, Red Cell Distribution Width 12.5 , Neutrophils (%) (Auto) 70.6 H, Lymphocytes (%) (Auto) 21.8 L, Monocytes (%) ( Auto) 4.7, Eosinophils (%) (Auto) 0.5, Basophils (%) (Auto) 0.5, Neutrophils # ( Auto) 7.7, Lymphocytes # (Auto) 2.6, Monocytes # (Auto) 0.5, Eosinophils # (Auto ) 0.1, Basophils # (Auto) 0.0 10/21/16 15:20 Microbiology Microbiology 10/21/16 Blood Culture, Received Pending 10/21/16 Blood Culture, Received Pending 10/21/16 Urine Culture, Received Pending Home Medications Scheduled Bupropion HCl (Bupropion HCl) 75 Mg Tab, 75 MG PO BID HAS NOT TAKEN IN OVER A WEEK Gabapentin (Gabapentin) 800 Mg Tab, 800 MG PO TID for NEUROPATHY Methylphenidate HCl (Ritalin) 10 Mg Tab, 10 MG PO TID Oxcarbazepine (Oxcarbazepine) 600 Mg Tab, 600 MG PO BID HAS NOT TAKEN IN OVER A WEEK Prazosin Hcl (Prazosin HCl) 2 Mg Cap, 2 MG PO QHS HAS NOT TAKEN IN OVER A WEEK Trazodone HCl (Trazodone HCl) 150 Mg Tab, 150 MG PO QHS HAS NOT TAKEN IN OVER A WEEK Allergies Coded Allergies: No Known Allergies (Verified Allergy, Unknown, 02/16/04) CARRI HUITRON MD Oct 21, 2016 19:10
[2016-10-21] MEDS ORDERED: PANTOPRAZOLE 40MG INJ (PROTONIX) (C9113) IV SCH (21:00)
[2016-10-21] MEDS: DOCUSATE SODIUM 100 MG CAP PO SCH (21:00)
[2016-10-21] MEDS: KETOROLAC 30 MG/ML VIAL (J1885) IV PRN (21:28)
[2016-10-21 22:00] VITALS: BP 152/63
[2016-10-22] MEDS: ONDANSETRON 4MG/2ML VIAL (J2405) IV PRN ×3 (00:05→14:55)
[2016-10-22 02:00] VITALS: BP 143/63
[2016-10-22 06:00] VITALS: BP 147/64
[2016-10-22] MEDS: KETOROLAC 30 MG/ML VIAL (J1885) IV PRN ×2 (06:22→14:57)
[2016-10-22 07:54] LABS: MEAN CORPUSCULAR HGB CONC 35.3 g/dl (32.0-36.5); MEAN CORPUSCULAR VOLUME 90.5 fl (80.0-96.0); RED CELL DISTRIBUTION WIDTH 12.3 % (11.5-14.5); WHITE BLOOD COUNT 10.2 K/mm3 (4.0-10.0)
[2016-10-22 08:17] LABS: ALBUMIN 3.4 GM/DL (3.2-5.2); ALKALINE PHOSPHATASE 74 U/L (45-117); ALT/SGPT 132 U/L (12-78); ANION GAP 12 MEQ/L (8-16); AST/SGOT 56 U/L (15-37); BILIRUBIN,TOTAL 0.5 MG/DL (0.2-1.0); BLOOD UREA NITROGEN 8 MG/DL (7-18); CALCIUM LEVEL 7.8 MG/DL (8.5-10.1); CARBON DIOXIDE LEVEL 23 MEQ/L (21-32); CHLORIDE LEVEL 104 MEQ/L (98-107); CREATININE FOR GFR 0.42 MG/DL (0.55-1.02); GLOMERULAR FILTRATION RATE > 60.0 (>60); GLUCOSE, FASTING 78 MG/DL (70-105); MAGNESIUM LEVEL 2.1 MG/DL (1.8-2.4); POTASSIUM SERUM 3.7 MEQ/L (3.5-5.1); SODIUM LEVEL 139 MEQ/L (136-145); TOTAL PROTEIN 6.5 GM/DL (6.4-8.2)
[2016-10-22] MEDS ORDERED: MIRALAX *UNIT DOSE* 17GM PACKET PO PRN (08:30)
[2016-10-22] MEDS ORDERED: METOCLOPRAMIDE INJ 10MG/2ML VIAL (J2765) IV PRN (08:45)
[2016-10-22] MEDS ORDERED: METOCLOPRAMIDE INJ 10MG/2ML VIAL (J2765) IV ONE (08:45)
[2016-10-22] MEDS ORDERED: buPROPion 75 MG TAB PO SCH (09:00)
[2016-10-22] MEDS ORDERED: METHYLPHENIDATE 5 MG TAB PO SCH ×2 (09:00→16:00)
[2016-10-22] MEDS ORDERED: OXcarbazepine 300 MG TAB PO SCH ×2 (09:00→21:00)
[2016-10-22] MEDS ORDERED: GABAPENTIN 400 MG CAP PO SCH (09:00)
[2016-10-22] MEDS ORDERED: ENOXAPARIN 40 MG/0.4 ML SYRINGE (J1650) SC SCH (09:00)
[2016-10-22] MEDS: GABAPENTIN 400 MG CAP PO SCH ×2 (10:10→16:48)
[2016-10-22] MEDS: DOCUSATE SODIUM 100 MG CAP PO SCH (10:10)
[2016-10-22] MEDS ORDERED: OXAZEPAM 10 MG CAP PO PRN (11:15)
--- NOTE | 2016-10-22 11:57 | IPNPDOC ---
Text Note Date of Service The patient was seen on 10/22/16. NOTE Subjective: Patient seen and examined at bedside. No acute event overnight. Patient still complaint about abdominal pain, and admits to constipation. Denies any flatus, fever/chill, chest pain, sob, and diarrhea, blood in urine or stool. Last BM was yesterday in the ER. Denies any other current new complaints. Objective: Vitals: (See below) General: Patient young female laying in bed, AAOx3, in mild distress, with head elevated at 30 degrees HEENT: Normal cephalic atraumatic, Extraocular motion intact, pupil equal round and reactive to light, ~mucosal membrane moist, neck supple, no neck lymphadenopathy Cardio: bradycardic, Normal S1, S2, No murmur/rubs/gallops Pulm: Clear to auscultations bilaterally, no wheezing, rales, or rhonchi. Abdomen: hyperactive bowel sounds, soft, mildly diffuse tender to palpation, none distended, no peritoneal signs, no ecchymosis, no masses that were palpable Ext: No edema, clubbing, or cynosis Skin: Warm and dry Neuro: Cranial Nerve 2 through 12 intact, No focal neurological deficit Labs ( See below) Most significantly: Images/Procedures: CT of abdomen and pelvis with IV contrast 10/21/16: Possible gastroenteritis or mild ileus. ASSESSMENT/PLAN: 1. Intractable nausea/vomiting/abdominal pain 2ndary to mild ileus vs. gastroenteritis - Hx of drug abuse, already received morphine therefore UDS might not be meaningful - Withdraw precaution - Started clear liquid diet and advance as tolerated - Zofran/Reglan PRN - Encourage ambulation - GI panel 2. Transaminitis - Per patient she has untreated Hep C - Hepatitis panel pending - ETOH level pending. 3. Abnormal EKG with bradycardia and ST T wave changes - Negative cardiac markers - Will do a lyme screen 4. History of depression/anxiety/PTSD/bipolar- has not had her medications and 5 days that she did not pick them up. - Started half dose of her usually psychiatric medications. 5. History of right eye blindness 6. History of nephrolithiasis 7. Transaminitis- we will obtain hepatitis panel. Ultrasound. We'll trend markers. DVT prophylaxis- Lovenox Fluid, Electrolytes, Nutrition: D5 NS 60mlh, CLD AAT Code: Full Disposition: Continue PT, pain control, supportive therapy at this point. VS,Fishbone, I+O VS, Fishbone, I+O Laboratory Tests 10/21/16 14:46 Red Blood Count 4.72, Mean Corpuscular Volume 90.8, Mean Corpuscular Hemoglobin 31.7, Mean Corpuscular Hemoglobin Concent 35.0, Red Cell Distribution Width 12.5 , Neutrophils (%) (Auto) 70.6 H, Lymphocytes (%) (Auto) 21.8 L, Monocytes (%) ( Auto) 4.7, Eosinophils (%) (Auto) 0.5, Basophils (%) (Auto) 0.5, Neutrophils # ( Auto) 7.7, Lymphocytes # (Auto) 2.6, Monocytes # (Auto) 0.5, Eosinophils # (Auto ) 0.1, Basophils # (Auto) 0.0 10/21/16 15:20 10/22/16 07:35 Red Blood Count 4.67, Mean Corpuscular Volume 90.5, Mean Corpuscular Hemoglobin 32.0, Mean Corpuscular Hemoglobin Concent 35.3, Red Cell Distribution Width 12.3 , Calcium Level 7.8 L, Aspartate Amino Transf (AST/SGOT) 56 H, Alanine Aminotransferase (ALT/SGPT) 132 H, Alkaline Phosphatase 74, Total Bilirubin 0.5 , Total Protein 6.5, Albumin 3.4 Vital Signs Date Time Temp Pulse Resp B/P (MAP) Pulse Ox O2 Delivery O2 Flow Rate FiO2 10/22/16 06:00 98.2 66 16 147/64 (91) 95 Room Air I&O- Last 24 Hours up to 6 AM 10/22/16 06:00 Intake Total 200 ml Output Total 250 ml Balance -50 ml GME ATTESTATION GME ATTESTATION My preceptor for this patient encounter was physically present in the building during the encounter and was fully available. As needed, all aspects of the patient interview, examination, medical decision making process, and medical care plan development were reviewed and approved by the preceptor. Preceptor is aware and concurs with the plan as stated in the body of this note and will attest to such by his/her cosignature. ATTENDING NOTE I, Chemo Ho, have both independently examined this patient as well as reviewed the documentation. I have discussed in detail with the resident the findings and plan of treatment as documented in the residents documentation. I will continue to follow the patient and offer further guidance to the patients care as necessary during this hospital stay. ERICA GARCIA DO Oct 22, 2016 11:57 CHEMO HO MD Oct 26, 2016 17:30
[2016-10-22] MEDS ORDERED: D5W/0.45% SODIUM CHLORIDE 1,000 ML IV SCH (12:00)
[2016-10-22 14:00] VITALS: BP 169/80
--- NOTE | 2016-10-22 16:44 | ECGEPIP ---
Stationary ECG Study [facility] Test Date: 2016-10-22 Pat Name: QUETA OLIVAS Department: Room: [place] [address] Gender: F [employer]: PARESH : 1985 Requested By: LD HO Order Number: [id number] Reading MD: Adilson Morgan Measurements Intervals [place] Rate: 58 P: 76 VA: 145 QRS: 50 QRSD: 88 T: 56 QT: 492 QTc: 486 Interpretive Statements SINUS BRADYCARDIA MODERATE T-WAVE ABNORMALITY, CONSIDER ANTERIOR ISCHEMIA Different precordial lead placement from 11/05/15, otherwise unchanged Electronically Signed On 10-22-2016 16:44:03 EDT by Adilson Morgan
[2016-10-22] MEDS ORDERED: traZODone 50 MG TAB PO SCH (21:00)
[2016-10-22] MEDS ORDERED: PRAZOSIN 1 MG CAP PO SCH (21:00)
[2016-10-24 00:06] LABS: Lyme Disease IgG/IgM Antibodie <0.91 ISR (0.00-0.90); Lyme Disease IgM Ab Quantitati <0.80 index (0.00-0.79)
== END 2016-10-22 17:50 | disposition left against medical advice (07) ==
LOC: M ED 13:57 → M ED INP 18:30 → M MS5PR 20:50
PROVIDERS: ADMIT Internal Medicine; ATTEND Internal Medicine
DX: R11.2 Nausea with vomiting, unspecified (principal); R10.9 Unspecified abdominal pain; K59.00 Constipation, unspecified; R74.0 Nonspecific elevation of levels of transaminase and lactic acid dehydrogenase [LDH]; R94.31 Abnormal electrocardiogram [ECG] [EKG]; R00.1 Bradycardia, unspecified; R42 Dizziness and giddiness; F31.9 Bipolar disorder, unspecified; F41.9 Anxiety disorder, unspecified; F43.10 Post-traumatic stress disorder, unspecified; H54.41 Blindness, right eye, normal vision left eye; Z87.442 Personal history of urinary calculi; Z79.899 Other long term (current) drug therapy; F12.90 Cannabis use, unspecified, uncomplicated; Z87.891 Personal history of nicotine dependence
CPT/HCPCS: 36415; 74000; 74177; 80048; 80053; 80076; 80320; 81001; 82150; 82550; 82553; 83605; 83690; 83735; 84703; 85025; 85027; 86617; 86705; 86709; 86803; 87040; 87086; 87340; 87521; 93000; 96372; 96374; 96375; 96376; 99284; C9113; J1650; J1885; J2405; J2765; Q9967

== ENCOUNTER 2017-02-16 12:39 | Emergency (ER) | payer OTHER ==
[~2017-02-16] VITALS: Ht 162.6 cm; Wt 50.0 kg
[~2017-02-16 12:39] MED LIST changes: +TRAZ1TAB14 PO
[2017-02-16 12:48] VITALS: BP 158/89
[2017-02-16] MEDS ORDERED: ANUSOL HC 25MG SUPP PR ONE (13:30)
[2017-02-16 14:08] LABS: CONTROL LINE HCG INT CTR LINE PRESENT
--- NOTE | 2017-02-16 14:25 | REP ---
Clinical: Constipation. Technique: Single supine view of the abdomen and pelvis. Comparison: 10/21/2016. Findings: Bowel gas pattern is nonspecific. No organomegaly. No significant calcifications. Phleboliths noted in the pelvis remains stable. Skeletal structures intact. Impression: Nonspecific bowel gas pattern Signed by Renan Michelle MD 02/16/2017 02:17 P
[2017-02-16] MEDS ORDERED: ANUS25SU PR (14:26)
[2017-02-16] MEDS ORDERED: DULC5TAB PO (14:26)
[2017-02-16] MEDS ORDERED: COLA100C5 PO (14:26)
[2017-02-16] MEDS ORDERED: BISACODYL 5 MG TAB PO ONE (14:30)
== END 2017-02-16 14:40 | disposition home or self-care (01) ==
LOC: M ED 12:39 → EDBD 12:39 → M ED 14:40
DX: K59.00 Constipation, unspecified (principal); K62.5 Hemorrhage of anus and rectum; K64.8 Other hemorrhoids; F19.10 Other psychoactive substance abuse, uncomplicated; F12.90 Cannabis use, unspecified, uncomplicated; F17.210 Nicotine dependence, cigarettes, uncomplicated; F31.9 Bipolar disorder, unspecified; F43.10 Post-traumatic stress disorder, unspecified; B18.2 Chronic viral hepatitis C; Z79.899 Other long term (current) drug therapy

== ENCOUNTER 2017-05-08 16:59 | Emergency (ER) | payer OTHER ==
[2017-05-08] MEDS: clonazePAM 0.5 MG TAB PO (17:58)
[2017-05-08] MEDS: cloNIDine HCL 0.1 MG/24 HR PATCH TOP (18:22)
== END 2017-05-08 19:16 | disposition home or self-care (01) ==
LOC: M ED 16:59
DX: F43.0 Acute stress reaction (principal); F11.23 Opioid dependence with withdrawal; B18.2 Chronic viral hepatitis C; F41.9 Anxiety disorder, unspecified; F17.210 Nicotine dependence, cigarettes, uncomplicated; Z79.899 Other long term (current) drug therapy
CPT/HCPCS: 99284

== ENCOUNTER 2017-05-11 10:44 | Emergency (ER) | payer OTHER ==
[2017-05-11] MEDS: ONDANSETRON 4MG/2ML VIAL (J2405) IV (12:48)
[2017-05-11] MEDS: NS 1,000 ML IV (12:49)
[2017-05-11 13:10] LABS: BASO % 0.4 % (0.0-1.0); EOS % 0.3 % (0.0-3.0); HEMATOCRIT 37.6 % (36.0-47.0); HEMOGLOBIN 13.2 g/dl (12.0-16.0); IMMATURE GRANULOCYTE % 0.1 % (0-3.0); LYMPH # 1.8 10^3/uL (1.5-4.5); LYMPH % 25.8 % (24.0-44.0); MEAN CORPUSCULAR HEMOGLOBIN 30.4 pg (27.0-33.0); MEAN CORPUSCULAR HGB CONC 35.1 g/dl (32.0-36.5); MEAN CORPUSCULAR VOLUME 86.6 fl (80.0-96.0); MONO # 0.5 10^3/uL (0.0-0.8); MONO % 7.1 % (0.0-5.0); NEUTROPHILS # 4.6 10^3/uL (1.8-7.7); NEUTROPHILS % 66.3 % (36.0-66.0); PLATELET COUNT, AUTOMATED 228 10^3/uL (150-450); RED BLOOD COUNT 4.34 10^6/uL (4.00-5.40); RED CELL DISTRIBUTION WIDTH 12.8 % (11.5-14.5); WHITE BLOOD COUNT 6.9 10^3/uL (4.0-10.0)
[2017-05-11 13:26] LABS: CONTROL LINE HCG INT CTR LINE PRESENT; HCG, SERUM QUALITATIVE NEGATIVE (NEGATIVE)
[2017-05-11 13:28] LABS: LIPASE 162 U/L (73-393)
[2017-05-11 13:33] LABS: AMPHETAMINES LEVEL URINE NEGATIVE (NEGATIVE); BARBITURATES URINE NEGATIVE (NEGATIVE); BENZODIAZEPINES URINE NEGATIVE (NEGATIVE); CANNABINOIDS URINE POSITIVE (NEGATIVE); COCAINE METABOLITE URINE NEGATIVE (NEGATIVE); METHADONE URINE NEGATIVE (NEGATIVE); OPIATES URINE NEGATIVE (NEGATIVE); PHENCYCLIDINE URINE NEGATIVE (NEGATIVE)
[2017-05-11 13:42] LABS: ALBUMIN 3.7 GM/DL (3.2-5.2); ALBUMIN/GLOBULIN RATIO 1.16 (1.00-1.93); ALKALINE PHOSPHATASE 34 U/L (45-117); ALT/SGPT 71 U/L (12-78); ANION GAP 8 MEQ/L (8-16); AST/SGOT 42 U/L (7-37); BILIRUBIN,DIRECT 0.2 MG/DL (0.0-0.2); BILIRUBIN,TOTAL 0.6 MG/DL (0.2-1.0); BLOOD UREA NITROGEN 13 MG/DL (7-18); CALCIUM LEVEL 8.2 MG/DL (8.5-10.1); CARBON DIOXIDE LEVEL 28 MEQ/L (21-32); CHLORIDE LEVEL 108 MEQ/L (98-107); ETHYL ALCOHOL (ETHANOL) < 0.003 % (0.000-0.010); GLOMERULAR FILTRATION RATE > 60.0 (>60); GLUCOSE, FASTING 100 MG/DL (70-100); POTASSIUM SERUM 4.6 MEQ/L (3.5-5.1); SALICYLATE LEVEL < 1.7 MG/DL (5.0-30.0); SODIUM LEVEL 144 MEQ/L (136-145); TOTAL PROTEIN 6.9 GM/DL (6.4-8.2)
[2017-05-11 13:48] LABS: ACETAMINOPHEN LEVEL < 2.0 UG/ML (10.0-30.0)
[2017-05-11] MEDS ORDERED: ISOVUE-370 76% 100ML VIAL (Q9967) As Ordered (14:07)
== END 2017-05-11 14:42 | disposition left against medical advice (07) ==
LOC: M ED 10:44
DX: R11.10 Vomiting, unspecified (principal); Z53.21 Procedure and treatment not carried out due to patient leaving prior to being seen by health care provider; F11.10 Opioid abuse, uncomplicated; Z86.19 Personal history of other infectious and parasitic diseases; H54.413A Blindness right eye category 3, normal vision left eye; F17.200 Nicotine dependence, unspecified, uncomplicated; Z79.899 Other long term (current) drug therapy
CPT/HCPCS: J2405

== ENCOUNTER 2018-11-16 03:23 | Emergency (ER) | payer OTHER ==
[~2018-11-16] VITALS: Ht 157.5 cm; Wt 52.3 kg
[~2018-11-16 03:23] MED LIST changes: +ANUS25SU PR; +BUPR50TA PO; +CLON-412 PO; +COLA100C5 PO; +DULC5TAB PO; +GABA-1171 PO; -GABA800T PO; +GABA800T4 PO; -NICO21DI5 TD; +NICO21DI6 TD; +NICODIS2 TD; -OMEP20CA3 PO; +OMEP20CA4 PO; +OXCA300T14 PO; -OXCA600T PO; +OXCA600T8 PO; +SERT-141 PO; -SERT50TA PO; -TRAZ-136 PO; +TRAZ-163 PO; +TRAZ-252 PO; -TRAZ50TA11 PO; +ZOFR4TAB14 PO; -ZOFR4TAB3 PO
[2018-11-16] MEDS ORDERED: NS 1,000 ML IV ONE (06:00)
[2018-11-16] MEDS ORDERED: TRIMETHOPRIM/SULFAMETHOXAZOLE 250 MG in D5W 500 ML IV ONE (06:00)
[2018-11-16] MEDS ORDERED: BACT800T5 PO (06:20)
[2018-11-16 08:02] VITALS: BP 116/59
== END 2018-11-16 08:06 | disposition home or self-care (01) ==
LOC: M ED 03:23
DX: L03.114 Cellulitis of left upper limb (principal); B18.2 Chronic viral hepatitis C; F17.200 Nicotine dependence, unspecified, uncomplicated; F19.988 Other psychoactive substance use, unspecified with other psychoactive substance-induced disorder; Z79.899 Other long term (current) drug therapy

== ENCOUNTER 2020-05-04 11:25 | Emergency (ER) | payer OTHER ==
[~2020-05-04] VITALS: Ht 157.5 cm; Wt 66.1 kg
[2020-05-04 11:25] VITALS: BP 130/78
[~2020-05-04 11:25] MED LIST changes: -ATOM40CA PO; +ATOM40CA16 PO; +BACT800T5 PO; +BUPR-69 PO; -BUPR50TA PO; +OMEP1CAP73 PO; -OMEP20CA4 PO; -TRAZ-163 PO; +TRAZ-257 PO
--- OUTSIDE RECORDS SUMMARY | 2020-05-04 11:35 | CCD ---
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 If such information is present, then the following federally mandated warning applies: This information has been disclosed to you from records protected by federal confidentiality rules (42 CFR part 2). The federal rules prohibit you from making any further disclosure of this information unless further disclosure is expressly permitted by the written consent of the person to whom it pertains or as otherwise permitted by 42 CFR part 2. A general authorization for the release of medical or other information is NOT sufficient for this purpose. The Federal rules restrict any use of the information to criminally investigate or prosecute any alcohol or drug abuse patient.The records that you are about to access may contain highly sensitive health information, the redisclosure of which is protected by Article 27-F of the [facility] Public Health law. If you continue you may have access to information: Regarding HIV / AIDS; Provided by facilities licensed or operated by the [facility] Office of Mental Health; or Provided by the [facility] Office for People With Developmental Disabilities. If such information is present, then the following [facility] mandated warning applies: This information has been disclosed to you from confidential records which are protected by state law. State law prohibits you from making any further disclosure of this information without the specific written consent of the person to whom it pertains, or as otherwise permitted by law. Any unauthorized further disclosure in violation of state law may result in a fine or detention sentence or both. A general authorization for the release of medical or other information is NOT sufficient authorization for further disc losure. Family History Family Member Name Family Member Gender Family Member Status Date o f Status Description Data Source(s) Unknown Unknown Problem [facility] ([facility]) Encounters Encounter Providers Location Date Indications Data Source(s ) Extended Individual Psychotherapy - 45 min Attender: Bria Ospina [facility] 12/09/2019 09:00:00 AM EDT - 12/09/2019 09:00:00 AM EDT [facility] ([facility]) Attender: Bria Greerus 12/09/2019 12:00:00 AM EDT [facility] ([facility]) Extended Individual Psychotherapy - 45 min Attender: Robert Cowan [facility] 11/23/2019 10:15:00 AM EDT - 11/23/2019 10:15:00 AM EDT [facility] ([facility]) Attender: lAka Cowan 11/23/2019 12:00:00 A M EDT [facility] ([facility]) Insurance Providers Payer name Policy type / Coverage type Policy ID Covered libertarian ID Covered libertarian's relationship to quintero Policy Quintero Plan Information [facility] COMMUNITY PLAN [facility] [id number] SP [id number] Managed Care - [facility] Community Plan P [id number] S [id number] Medicaid S [id number] S [id number] [facility] COMMUNITY PLAN [facility] [id number] SP [id number] Managed Care - Community Plan [facility] P [id number] S [id number] Managed Care - Community Plan [facility] P [id number] S [id number] Medicaid S [id number] S [id number] Managed Care - Community Plan [facility] P [id number] S [id number] [facility](MCAID) O [id number] S [id number] [employer]ULT [id number] SP [id number] [employer] FAULT [id number] SP [id number] [employer] NO FAULT [id number] SP [id number] UN COMMUNITY PLAN MCDO [id number] SP [id number] UN COMMUNITY PLAN MCDO [id number] SP [id number] MEDICAID [id number] SP [id number] OTHER NO FAULT [id number] SP [id number] O UNAVAILABLE UNAVAILA BLE [facility] Health Maintenance Organization (HMO) Self MEDICAID M [id number] S [id number] [facility](MCAID) O [id number] S [id number] [facility] COMMUNITY PLAN MCDO [id number] SP [id number] [facility](MCAID) O [id number] S [id number] [facility] COMMUNITY PLAN MCDO [id number] SP [id number] [facility] COMMUNITY PLAN MCDO [id number] SP [id number] [facility] [id number] SP [id number] [facility] COMMUNITY PLAN MCDHMO [id number] SP [id number] Problems, Conditions, and Diagnoses Code Display Name Description Problem Type Effective Dates Data Source(s) F41.9 Anxiety disorder, unspecified Unspecified Anxiety Diso rder Condition 12/09/2019 12:00:00 AM EDT [facility] ([facility]) F31.12 Bipolar disorder, current ep isode manic without psychotic features, moderate Bipolar I Disorder, Current or most recent episode man ic, Moderate Condition 12/09/2019 12:00:00 AM EDT [facility] ([facility]) Surgeries/Procedures Procedure Description Date Indications Data Source(s) Extended Individual Psychotherapy - 45 min 12/09/2019 12:00:00 AM EDT - 12/09/2019 12:00:00 AM EDT [facility] ([facility]) Extended Individual Psychotherapy - 45 min 0 12:00:00 AM EDT [facility] ([facility]) Extended Individual Psychotherapy - 45 min 11/23/2019 12:00:00 AM EDT - 11/23/2019 12:00:00 AM EDT [facility] ([facility]) Extended Individual Psychotherapy - 45 min 0 12:00:00 AM EDT [facility] ([facility]) Social History Code Duration Value Status Description Data Source(s ) Smoking 12/09/2019 12:00:00 AM EDT Current every day smoker co mpleted Current every day smoker [facility]) Smoking 11/23/2019 12:00:00 AM EDT Current every day smoker co mpleted Current every day smoker [facility] ([facility])
--- OUTSIDE RECORDS SUMMARY | 2020-05-04 11:49 | CCD ---
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 If you continue you may have access to information: Regarding HIV / AIDS; Provided by facilities licensed or operated by the [facility] Office of Mental Health; or Provided by the [facility] Office for People With Developmental Disabilities. If such information is present, then the following [facility] mandated warning applies: This information has been [...] law may result in a fine or correction sentence or both. A general authorization for [...] Psychotherapy - 45 min Attender: Bria Ospina [facility] 12/09/2019 09:00:00 AM EDT - 12/09/2019 09:00:00 AM EDT [facility] ([facility]) Attender: Bria Greerus 12/09/2019 12:00:00 AM EDT [facility] ([facility]) Extended Individual Psychotherapy - 45 min Attender: Robert Cowan [facility] 11/23/2019 10:15:00 AM EDT - 11/23/2019 10:15:00 AM EDT [facility] ([facility]) Attender: Alka Cowan 11/23/2019 12:00:00 A M EDT [facility] ([facility]) Insurance Providers Payer name Policy type / Coverage type Policy ID Covered constitution party ID Covered constitution party's relationship to quintero Policy Quintero Plan Information [facility] COMMUNITY PLAN [facility] [id number] SP [id number] [facility] - [facility] Community Plan P [id number] S [id number] Medicaid S [id number] S [id number] [facility] COMMUNITY PLAN [facility] [id number] SP [id number] Managed Care - Community Plan [facility] P [id number] S [id number] Managed Care - Community Plan [facility] P [id number] S [id number] Medicaid S [id number] S [id number] Managed Care - Community Plan [facility] P [id number] S [id number] [facility](MCAID) O [id number] S [id number] [employer] NO [employer]ULT [id number] SP [id number] [employer] NO FAULT [id number] SP [id number] [employer] NO FAULT [id number] SP [id number] UN COMMUNITY PLAN MCDO [id number] SP [id number] UN COMMUNITY PLAN MCDO [id number] SP [id number] MEDICAID [id number] SP [id number] OTHER NO FAULT [id number] SP [id number] O UNAVAILABLE UNAVAILA BLE [facility] Health Maintenance Organization (HMO) Self MEDICAID M [id number] S [id number] [facility](MCAID) O [id number] S [id number] [facility] COMMUNITY PLAN MCDO [id number] SP [id number] [facility](MCAID) O [id number] S [id number] [facility] COMMUNITY PLAN MCDO [id number] SP [id number] [facility] COMMUNITY PLAN MCDO [id number] SP [id number] [facility] HEALTH AURE [id number] SP [id number] [facility] COMMUNITY PLAN MCDHMO [id number] SP [id number] Problems, Conditions, and Diagnoses Code Display Name Description Problem Type Effective Dates Data Source(s) F41.9 Anxiety disorder, unspecified Unspecified Anxiety Diso rder Condition 12/09/2019 12:00:00 AM EDT [facility] ([facility]) F31.12 Bipolar disorder, current ep isode manic without psychotic features, moderate Bipolar I Disorder, Current or most recent episode man ic, Moderate Condition 12/09/2019 12:00:00 AM EDT [facility] ([facility]) Surgeries/Procedures Procedure Description Date Indications Data Source(s) Extended Individual Psychotherapy - 45 min 12/09/2019 12:00:00 AM EDT - 12/09/2019 12:00:00 AM EDT [facility] ([facility]) Extended Individual Psychotherapy - 45 min 0 12:00:00 AM EDT [facility] ([facility]) Extended Individual Psychotherapy - 45 min 11/23/2019 12:00:00 AM EDT - 11/23/2019 12:00:00 AM EDT [facility] ([facility]) Extended Individual Psychotherapy - 45 min 0 12:00:00 AM EDT [facility] ([facility]) Social History Code Duration Value Status Description Data Source(s ) Smoking 12/09/2019 12:00:00 AM EDT Current every day smoker co mpleted Current every day smoker [facility] ([facility]) Smoking 11/23/2019 12:00:00 AM EDT Current every day smoker co mpleted Current every day smoker [facility] ([facility])
== END 2020-05-04 12:16 | disposition home or self-care (01) ==
LOC: M ED 11:25
DX: K60.2 Anal fissure, unspecified (principal); K21.9 Gastro-esophageal reflux disease without esophagitis; K64.8 Other hemorrhoids; J45.909 Unspecified asthma, uncomplicated; F12.10 Cannabis abuse, uncomplicated

== ENCOUNTER → 2020-06-15 | Outpatient (REF) | payer OTHER ==
[2020-06-15 23:15] LABS: CHLAMYDIA DNA AMPLIFICATION NEGATIVE (NEGATIVE); GC DNA AMPLIFICATION NEGATIVE (NEGATIVE)
== END ==
LOC: M LAB REF 20:54
PROVIDERS: ATTEND Physician Assistant
DX: Z11.3 Encounter for screening for infections with a predominantly sexual mode of transmission (principal)

== ENCOUNTER → 2020-07-28 | Outpatient (REF) | payer OTHER ==
[~2020-07-28] MED LIST changes: +ACYC1TAB PO; -ACYC400T PO
[2020-07-28 23:28] LABS: APPEARANCE, URINE HAZY (CLEAR); BACTERIA, URINE AUTO NEGATIVE (NEGATIVE); BILIRUBIN, URINE AUTO NEGATIVE (NEGATIVE); BLOOD, URINE BLOOD 1+ (NEGATIVE); COLOR, URINE YELLOW (YELLOW); GLUCOSE, URINE (UA) AUTO NEGATIVE (NEGATIVE); KETONE, URINE AUTO NEGATIVE (NEGATIVE); LEUKOCYTE ESTERASE, URINE AUTO NEGATIVE (NEGATIVE); MUCUS, URINE SMALL (NEGATIVE); NITRITE, URINE AUTO NEGATIVE (NEGATIVE); PROTEIN, URINE AUTO NEGATIVE (NEGATIVE); RBC, URINE AUTO 4 /HPF (0-3); SPECIFIC GRAVITY URINE AUTO 1.024 (1.002-1.035); SQUAMOUS EPITHELIAL CELL UR AU 10 /HPF (0-6); UROBILINOGEN, URINE AUTO 0.2 mg/dL (0.0-2.0); WBC, URINE AUTO 3 /HPF (0-3)
== END ==
LOC: M LAB REF 23:15
PROVIDERS: ATTEND Physician Assistant
DX: R30.0 Dysuria (principal)

== ENCOUNTER 2020-11-11 23:10 | Emergency (ER) | payer OTHER ==
[~2020-11-11] VITALS: Ht 157.5 cm; Wt 66.7 kg
[~2020-11-11 23:10] MED LIST changes: +IBUP-1856 PO; -IBUP100S37 PO
[2020-11-11 23:11] VITALS: BP 117/75
== END 2020-11-11 23:34 | disposition left against medical advice (07) ==
LOC: M ED 23:10
DX: Z53.29 Procedure and treatment not carried out because of patient's decision for other reasons (principal)

== ENCOUNTER → 2021-12-06 | Outpatient (CLI) | payer OTHER ==
[~2021-12-06] MED LIST changes: -CEFD1CAP8 PO; +CEFD300C41 PO; +ETON68IM SC; -NEXP1IMP SC; +POTA-149 PO; -POTA10TA16 PO
[2021-12-06 16:00] LABS: HEMATOCRIT 37.4 % (36.0-47.0); HEMOGLOBIN 12.7 g/dl (12.0-15.5); MEAN CORPUSCULAR HEMOGLOBIN 30.5 pg (27.0-33.0); MEAN CORPUSCULAR VOLUME 89.9 fl (80.0-96.0); PLATELET COUNT, AUTOMATED 221 10^3/uL (150-450); RED BLOOD COUNT 4.16 10^6/uL (4.00-5.40); WHITE BLOOD COUNT 5.9 10^3/uL (4.0-10.0)
[2021-12-06 16:11] LABS: INR 0.98; PROTHROMBIN TIME 13.3 SECONDS (12.7-14.5)
[2021-12-06 16:36] LABS: ALBUMIN 3.7 GM/DL (3.2-5.2); ALT/SGPT 94 U/L (12-78); BILIRUBIN,TOTAL 0.8 MG/DL (0.2-1.0); BLOOD UREA NITROGEN 12 MG/DL (7-18); CALCIUM LEVEL 8.7 MG/DL (8.5-10.1); CARBON DIOXIDE LEVEL 27 MEQ/L (21-32); CHLORIDE LEVEL 107 MEQ/L (98-107); CREATININE FOR GFR 0.72 MG/DL (0.55-1.30); GLOMERULAR FILTRATION RATE > 60.0 (>60); GLUCOSE, FASTING 71 MG/DL (70-100); HCG, SERUM QUANTITATIVE < 1.0 MIU/ML; SODIUM LEVEL 138 MEQ/L (136-145); TOTAL PROTEIN 7.3 GM/DL (6.4-8.2)
[2021-12-06 17:40] LABS: HEPATITIS B SURFACE ANTIBODY POSITIVE (POSITIVE)
[2021-12-06 18:20] LABS: HIV 1&2 SCREEN CENTAUR NEGATIVE (NEGATIVE)
== END ==
LOC: M LAB 14:47
PROVIDERS: ATTEND Nurse Practitioner Family
DX: B18.2 Chronic viral hepatitis C (principal)

== ENCOUNTER → 2021-12-07 | Outpatient (CLI) | payer OTHER | LOC: M LAB 09:59 | PROVIDERS: ATTEND Nurse Practitioner Family | DX: B18.2 Chronic viral hepatitis C (principal) ==

== ENCOUNTER → 2021-12-10 | Outpatient (CLI) | payer OTHER | LOC: M LAB 14:24 | PROVIDERS: ATTEND Nurse Practitioner Family | DX: B18.2 Chronic viral hepatitis C (principal) ==

== ENCOUNTER 2022-11-02 12:54 | Emergency (ER) | payer OTHER ==
[~2022-11-02] VITALS: Ht 157.5 cm; Wt 70.5 kg
[~2022-11-02 12:54] MED LIST changes: -IBUP-1856 PO; +IBUP100S54 PO
[2022-11-02 13:14] VITALS: BP 189/77; TEMP 98.6; O2SAT 100
== END 2022-11-02 17:22 | disposition left against medical advice (07) ==
LOC: M ED 12:54
DX: R10.9 Unspecified abdominal pain (principal); Z53.21 Procedure and treatment not carried out due to patient leaving prior to being seen by health care provider

== ENCOUNTER → 2022-11-29 | Outpatient (CLI) | payer OTHER ==
[2022-11-30 14:10] LABS: HEPATITIS C QUANTITATION HCV Not Detected IU/mL (.)
== END ==
LOC: M LAB 11:23
DX: B18.2 Chronic viral hepatitis C (principal)

== ENCOUNTER 2023-07-29 12:13 | Emergency (ER) | payer OTHER ==
[~2023-07-29] VITALS: Ht 157.5 cm; Wt 75.0 kg
[~2023-07-29 12:13] MED LIST changes: +CEFD1CAP9 PO; -CEFD300C41 PO
[2023-07-29 12:19] VITALS: BP 113/71; TEMP 98.2; O2SAT 97
[2023-07-29] MEDS: ONDANSETRON 4MG ORAL DISINTEGRATING TAB PO ONE (13:37)
[2023-07-29 14:41] LABS: BASO % 0.3 % (0.0-1.0); EOS % 0.1 % (0.0-3.0); HEMATOCRIT 40.9 % (36.0-47.0); HEMOGLOBIN 14.2 g/dl (12.0-15.5); LYMPH # 1.5 10^3/uL (1.5-5.0); LYMPH % 20.2 % (24.0-44.0); MEAN CORPUSCULAR HEMOGLOBIN 29.7 pg (27.0-33.0); MEAN CORPUSCULAR HGB CONC 34.7 g/dl (32.0-36.5); MEAN CORPUSCULAR VOLUME 85.6 fl (80.0-96.0); MONO # 0.7 10^3/uL (0.0-0.8); MONO % 9.4 % (2.0-8.0); NEUTROPHILS # 5.3 10^3/uL (1.5-8.5); NEUTROPHILS % 69.7 % (36.0-66.0); PLATELET COUNT, AUTOMATED 300 10^3/uL (150-450); RED BLOOD COUNT 4.78 10^6/uL (4.00-5.40); WHITE BLOOD COUNT 7.6 10^3/uL (4.0-10.0)
[2023-07-29 15:04] LABS: LIPASE 32 U/L (12-53)
[2023-07-29 15:06] LABS: ALBUMIN 3.9 G/DL (3.2-5.2); ALKALINE PHOSPHATASE 61 U/L (46-116); ALT/SGPT 15 U/L (7.0-40); AST/SGOT 18 U/L (<34); BILIRUBIN,DIRECT 0.3 MG/DL (<0.4); BILIRUBIN,TOTAL 1.1 MG/DL (0.3-1.2); BLOOD UREA NITROGEN 13 MG/DL (9-23); CALCIUM LEVEL 8.6 MG/DL (8.5-10.1); CARBON DIOXIDE LEVEL 21 MMOL/L (20-31); CHLORIDE LEVEL 105 MMOL/L (98-107); CREATININE FOR GFR 0.54 MG/DL (0.55-1.30); GLOMERULAR FILTRATION RATE > 60.0 (>60); GLUCOSE, FASTING 84 MG/DL (60-100); SODIUM LEVEL 135 MMOL/L (136-145); TOTAL PROTEIN 7.4 G/DL (5.7-8.2)
[2023-07-29 15:13] LABS: HCG, SERUM QUALITATIVE NEGATIVE (NEGATIVE)
== END 2023-07-29 17:13 | disposition left against medical advice (07) ==
LOC: M ED 12:13 → EDBD 12:13 → EDUNIT# 12:13 → M ED 17:13
DX: Z53.21 Procedure and treatment not carried out due to patient leaving prior to being seen by health care provider (principal)

== ENCOUNTER 2024-05-10 10:01 | Emergency (ER) | payer OTHER ==
[~2024-05-10] VITALS: Ht 157.5 cm; Wt 62.2 kg
[~2024-05-10 10:01] MED LIST changes: +GABA-1635 PO; -GABA800T4 PO
[2024-05-10 10:02] VITALS: BP 139/79; TEMP 99.4; O2SAT 100
[2024-05-10] MEDS ORDERED: IBUP-1022 PO (10:14)
== END 2024-05-10 11:30 | disposition left against medical advice (07) ==
LOC: M ED 10:01
DX: Z53.21 Procedure and treatment not carried out due to patient leaving prior to being seen by health care provider (principal)